=== PATIENT | male | born 1955 | race African-American/Black ===

== ENCOUNTER 2021-08-11 13:35 | Emergency (ER) | payer OTHER ==
[~2021-08-11] VITALS: Ht 175.3 cm; Wt 79.4 kg
[2021-08-11 13:46] VITALS: BP 150/95
[2021-08-11 15:10] LABS: ABSOLUTE NEUTROPHILS 3.4 thou/uL (1.4-8.2); BASOPHILS 0.5 % (0.0-2.0); EOSINOPHILS 2.1 % (0.0-3.0); HEMATOCRIT 49.3 % (42.0-52.0); HEMOGLOBIN 16.7 gm/dL (14.0-18.0); LYMPHOCYTES 15.5 % (24.0-44.0); MCH 31.5 pg (26.0-34.0); MCHC 33.8 g/dL (28.0-37.0); MCV 93.1 fL (80.0-100.0); MONOCYTES 11.9 % (1.0-8.0); PLATELET COUNT 195 thou/uL (150-400); RDW 14.1 % (10.5-14.5); WBC 4.8 thou/uL (4.0-11.0)
[2021-08-11 15:21] LABS: CALCIUM 8.3 mg/dL (8.5-10.1); CREATININE 1.5 mg/dL (0.7-1.3); POTASSIUM 4.5 mmol/L (3.5-5.1)
[2021-08-11] MEDS ORDERED: FLEXERIL PO (15:34)
[2021-08-11] MEDS ORDERED: NAPROXEN SODIU220 M2 PO (15:34)
--- NOTE | 2021-08-12 07:29 | EKG ---
[address] [address] ELECTROCARDIOGRAM REPORT Name: GUZMANEVERETT Katalina Room #: [facility]USCathleen#: [id number] Admission: 08/11/21 Attend Phys: Discharge: 08/11/21 Date of : 51 Report #: [id number] [facility] ED Test Date: 2021-08-11 Test Time: 13:54:45 Pat Name: EVERETT GUZMAN Department: Room: Gender: M Platform Engineer: : [id number] Requested By: Geronimo Moore Order Number: [id number] MD: Tacho Cohen Measurements Intervals Blanch Rate: 82 P: 78 MS: 145 QRS: 78 QRSD: 85 T: 84 QT: 391 QTc: 457 Interpretive Statements Sinus rhythm Probable left atrial enlargement No previous ECG available for comparison Electronically Signed On 08-12-2021 7:29:46 CDT by Tacho Cohen [email or web address] <ELECTRONICALLY SIGNED> By: Tacho Cohen MD, [facility] 08/12/21 0729 [id number] Tacho Cohen MD, FACC /EPI
== END 2021-08-11 15:49 | disposition home or self-care (01) ==
LOC: ER 13:35
PROVIDERS: Emergency Medicine
DX: M79.601 Pain in right arm (principal); M79.604 Pain in right leg; I10 Essential (primary) hypertension; F17.210 Nicotine dependence, cigarettes, uncomplicated; Z86.73 Personal history of transient ischemic attack (TIA), and cerebral infarction without residual deficits; Z88.6 Allergy status to analgesic agent; Z88.8 Allergy status to other drugs, medicaments and biological substances; W19.XXXA Unspecified fall, initial encounter; Y93.89 Activity, other specified; Y92.89 Other specified places as the place of occurrence of the external cause; Y99.8 Other external cause status